=== PATIENT | male | born 1935 | race Caucasian/White ===

== ENCOUNTER → 2019-12-18 16:27 | Outpatient (REF) | payer MEDICARE, SELFPAY | LOC: ANHLAB 16:27 | PROVIDERS: PCP Internal Medicine; Visit Provider Nurse Practitioner | DX: D49.2 Neoplasm of unspecified behavior of bone, soft tissue, and skin (principal) | CPT/HCPCS: 88305 ==

== ENCOUNTER 2020-03-17 12:58 | Outpatient (NON) | payer MEDICARE, SELFPAY ==
[2020-03-18 01:01] LABS: SARS-CoV-2 RNA PCR Negative
== END 2020-03-17 12:59 ==
PROVIDERS: PCP Internal Medicine; Visit Provider Internal Medicine
DX: R68.89 Other general symptoms and signs (principal); Z20.828 Contact with and (suspected) exposure to other viral communicable diseases
CPT/HCPCS: 87635; C9803; U0003